=== PATIENT | female | born 1955 | race Caucasian/White ===

== ENCOUNTER 2025-04-21 12:01 | Outpatient (CLI) | payer MEDICARE, MEDICAID, SELFPAY ==
[2025-04-21] VITALS (13 sets, daily range): BP systolic 87–119; BP diastolic 49–82; PULSE 71–79; RESP 12–21; TEMP 35.7; O2SAT 90–98
--- NOTE | 2025-04-21 | PATH_ITS ---
[facility] Accession Number: [id number] No. of containers..02 Tissue . 01 Material submitted: . PART A: bone marrow - RIGHT ILIAC CORE PART B: body - BONE MARROW CLOT . 01 Diagnosis: BONE MARROW BIOPSY, ASPIRATE CLOT, AND ASPIRATE SMEAR, RIGHT ILIAC CREST: - Suboptimal morphologic evaluation due to limited sample, showing normocellular bone marrow for age (30%), with normal maturing trilineage hematopoiesis, negative for increased blasts. - Negative for reticulin fibrosis. - Chromosome analysis and CML/MPN FISH panel pending. - See comment and microscopic description. - COMMENT: Concurrent flow cytometry analysis (specimen ID: [id number]) is negative for increased or aberrant blasts, negative for monotypic B-cells and aberrant T-cells, and negative for a monotypic plasma cell population. - Chromosome analysis and FISH panel results will be reported in an addendum. Follow up and clinical correlation is recommended. - The preliminary findings were discussed with Dr. Portillo on 04/26/2025 in a telephone conversation with Dr. Rabago. [facility] 04/27/2025 1505 Local . 01 Electronically signed: . Renny Yuen MD, Pathologist NPI- [id number] . 01 Gross description: . Received two formalin-filled containers, one labeled with the patient's name and the other with no patient identification on container (ID confirmed, authorization form received). . A. In a container labeled right iliac core, the specimen consists of a 1.5 x 0.3 x 0.3 cm portion of core, totally submitted in cassette A. The specimen will be decalcified. B. No identification or source on container, arbitrarily designated B, are multiple fragments of clotted blood which measure 1.0 x 1.0 x 0.2 cm. The specimen is filtered and totally submitted in cassette B. ([facility] – [place]:[id number]) /MRV 04/22/2025 [facility]6 Local . 01 Microscopic: . CLINICAL HISTORY: 70-year-old with a history of JAK2+ myeloproliferative neoplasm. - MOST RECENT AVAILABLE CBC (04/21/2025): WBC: 4.4 K/uL HCT: 38.6 % PLT: 377 K/uL. - ASPIRATE SMEAR EVALUATION AND MANUAL DIFFERENTIAL (%): Aspirate smears are hemodilute, lacking bone marrow particles, and are suboptimal for assessment of morphologic abnormalities and precise cell counts. Maturing myeloid and erythroid precursors noted. No dominant blast population is seen. Insufficient megakaryocytes present for meaningful morphologic analysis. Iron stain: The lack of bone marrow particles limits evaluation of storage iron. Negative for ring sideroblasts. - ASPIRATE CLOT: Small foci of marrow particles are present with approximately 30% cellularity. To better characterize this process, a select immunohistochemical stain panel was indicated and performed on block B (clot section) with a CD34 on block A (core biopsy) with adequate controls (see below). CD34 highlights <5% scattered blasts. Myeloid cells: Normal maturation and number. Erythroid precursors: Normal number and distribution. Megakaryocytes: normal number and distribution. CD117 highlights scattered mast cells, <1% of cellularity. Lymphocytes: Negative for discrete lymphoid aggregates. Scattered CD3+ T-cells and CD20+ B-cells present. Iron stain: No increase in storage iron. - CORE BIOPSY: The core biopsy is suboptimal for evaluation due to periosteal sampling. Evaluable marrow space is approximately 30% cellularity. CD34 highlights <5% scattered blasts. - As part of ongoing air quality instrument specialist, select slides were reviewed by Dr. Lester Rabago who agrees with the interpretation. Technical Note: The immunohistochemical stains reported were performed at [facility] ([address], [facility] [address]). This test was developed, and the performance characteristics were validated by [facility]. It has not been cleared or approved by the Food and Drug Administration. . 01 Pathologist provided ICD-10: D47.1 . 01 CPT . 378093, 409048, 238024, 715604, 923220, 262885, V72039, P04825 Specimen Comment: A courtesy copy of this report has been sent to [phone] Performed at: [address] [id number] MD Davie Haskins MD Phone: [phone]
--- NOTE | 2025-04-21 12:06 | DI.CT.S_ITS ---
PROCEDURE: CT BIOPSY BONE SUPERFICIAL Sedation analgesia for 15 minutes. INDICATIONS: BONE MARROW BIOPSY TECHNIQUE: The indications, alternatives, benefits, risks, and possible complications of the procedure were communicated to the patient. Informed written consent from the patient was obtained and placed in the chart. Continuous EKG and hemodynamic monitoring was started by trained personnel. The patient was brought to the CT suite and job developer for deaf adults spiral CT imaging was performed with localization grid. The appropriate site for percutaneous access to the biopsy target was marked, was prepped and draped sterilely, and was infused with local anaesthesia. Under CT guidance, a core biopsy trocar and needle set was advanced to the biopsy target, and specimen(s) were obtained. Specimens included 15 mL of bone marrow and a 1 cm bone core. The trocar and needle were then removed, and the patient was sent for post- procedure monitoring. COMPARISON: None. FINDINGS: Biopsy site: Right iliac bone Needle: 13 gauge biopsy needle with introducer trocar. Number of passes: 1 Medications: 1% lidocaine for local anaesthesia. IV Fentanyl and Versed for conscious sedation for 15 minutes (see nursing record). Complications: None. IMPRESSION: Successful CT-guided bone marrow biopsy. Dictated by: Selwyn Novoa M.D. on 04/21/2025 at 16:01 Approved by: Selwyn Novoa M.D. on 04/21/2025 at 16:02
[2025-04-21 13:16] LABS: Hematocrit 38.6 % (36-46); Hemoglobin 13.4 g/dL (12.0-16.0); Mean Corpuscular HGB Conc 34.6 % (30-36); Mean Corpuscular Hemoglobin 39.8 PG (26-34); Mean Corpuscular Volume 115.0 fL (80-100); Platelet Count 377 X10^3/uL (150-400)
[2025-04-21 13:18] LABS: INR 1.0 (0.9-1.3); Prothrombin Time 10.8 SECONDS (9.4-12.5)
[2025-04-21 13:21] LABS: PTT Partial Thromboplastin Tim 25 SECONDS (25.1-36.5)
[2025-04-21] MEDS: ONDANSETRON 4 MG/2 ML INJ IV (13:50)
[2025-04-21] MEDS: MIDAZOLAM 2 MG/2 ML VIAL 0.5 MG IV ×2 (13:52→13:59)
[2025-04-21] MEDS: fentaNYL 100 MCG/2 ML INJ 25 MCG IV (13:52)
== END 2025-04-21 16:09 | disposition home or self-care (01) ==
LOC: CT 12:05
PROVIDERS: Visit Provider Radiology Diagnostic Radiology
DX: D47.1 Chronic myeloproliferative disease (principal)
CPT/HCPCS: 20220; 77012; 85027; 85610; 85730; J2250; J2405; J3010